=== PATIENT | male | born 1950 ===

== ENCOUNTER 2018-11-08 18:10 | Emergency (ER) | payer SELFPAY ==
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
[2018-11-08 20:48] VITALS: BP 130/79
== END 2018-11-08 20:49 | disposition home or self-care (01) ==
LOC: UCEAST 18:10
DX: S06.0X9A Concussion with loss of consciousness of unspecified duration, initial encounter (principal); W19.XXXA Unspecified fall, initial encounter; Y92.814 Boat as the place of occurrence of the external cause; Z87.891 Personal history of nicotine dependence
CPT/HCPCS: 70450; 71250; 74176; 99201; G0463